=== PATIENT | female | born 1970 ===

== ENCOUNTER 2017-05-18 20:20 | Emergency (ER) | payer SELFPAY ==
[2017-05-18 20:36] VITALS: BP 115/70; PULSE 61; RESP 17; TEMP 98.2; O2SAT 99
[2017-05-18] MEDS ORDERED: Sodium Chloride 0.9% 1,000 ML IV STA (21:02)
--- NOTE | 2017-05-18 21:07 | ED PDOC ---
HPI: Abdomen Time Seen by Provider: 05/18/17 21:05 Chief Complaint (Nursing): Abdominal Pain Chief Complaint (Provider): ABDOMINAL PAIN History Per: Patient (47 Y/O FEMALE HERE WITH LOWER ABDOMINAL PAIN INTERMITTENT X 8 DAYS WITH WORSENING X 2 DAYS ASSOCIATED WITH DARK STOOLS. STATES SHE NOTED DIARRHEA INITIALLY WITH SYMPTOMS AND HAD TAKEN PEPTO BISMAL FOR SYMPTOMS. HAS HAD C SXN IN PAST. DENIES ANY FEVERS/CHILLS.) Past Medical History Reviewed: Historical Data, Nursing Documentation, Vital Signs Vital Signs: Last Vital Signs Temp 98.2 F 05/18/17 20:31 Pulse 61 05/18/17 20:31 Resp 17 05/18/17 20:31 BP 115/70 05/18/17 20:31 Pulse Ox 99 05/19/17 00:56 - Family History Family History: States: No Known Family Hx - Home Medications Home Medications: Ambulatory Orders Medication Instructions Recorded Famotidine [Pepcid] 20 mg PO BID #10 tab 05/19/17 - Allergies Allergies/Adverse Reactions: Allergies Allergy/AdvReac Type Severity Reaction Status Date / Time No Known Allergies Allergy Verified 05/18/17 20:36 Review of Systems ROS Statement: Except As Marked, All Systems Reviewed And Found Negative Gastrointestinal: Positive for: Abdominal Pain Physical Exam - Reviewed Nursing Documentation Reviewed: Yes Vital Signs Reviewed: Yes - Physical Exam Appears: Positive for: Well, Non-toxic, No Acute Distress Head Exam: Positive for: ATRAUMATIC, NORMAL INSPECTION, NORMOCEPHALIC Skin: Positive for: Normal Color, Warm, DRY Eye Exam: Positive for: EOMI, Normal appearance, PERRL ENT: Positive for: Normal ENT Inspection Neck: Positive for: Normal, Painless ROM Cardiovascular/Chest: Positive for: Regular Rate, Rhythm Respiratory: Positive for: CNT, Normal Breath Sounds Gastrointestinal/Abdominal: Positive for: Normal Exam, Bowel Sounds, Soft, Tenderness (RIGHT LOWER QUADRANT TENDERNESS NOTED.) Back: Positive for: Normal Inspection Rectal: Positive for: Other (DARK NONTARRY STOOL NOTED. NO BLOOD VISUALIZED.) Extremity: Positive for: Normal ROM Neurologic/Psych: Positive for: Alert, Oriented - Laboratory Results Result Diagrams: 05/18/17 21:38 05/18/17 21:38 - ECG O2 Sat by Pulse Oximetry: 99 - Progress ED Course And Treament: IMPRESSION: 1. Normal appendix. 2. Mild mucosal thickening in portions of the colon which may be due to its decompressed state or due to a mild colitis. Thank you for allowing us to participate in the care of your patient. Dictated and Authenticated by: Nimesh Ray MD pepcid 20 mg iv x 1 dose zofran 4 mg iv x1 dose ns 1 liter wide open Able to tolerate po in ED. Disposition - Clinical Impression Clinical Impression: Abdominal pain in female - Patient ED Disposition Is Patient to be Admitted: No - Disposition Referrals: Nimesh Andrews MD, PhD [Staff Provider] - Disposition: Routine/Home Disposition Time: 00:54 Condition: FAIR Prescriptions: Famotidine [Pepcid] 20 mg PO BID #10 tab Instructions: Diverticulitis Diet (ED), Colitis (ED) Forms: [facility] (Singaporean), [facility] ED School/Work Excuse Print Language: IRISH
[2017-05-18 22:01] LABS: ALB/GLOB RATIO 1.3 (1.0-2.1); ALKALINE PHOSPHATASE 49 U/L (38-126); ALT/SGPT 63 U/L (9-52); AST/SGOT 62 U/L (14-36); BILIRUBIN,TOTAL 0.4 mg/dl (0.2-1.3); BLOOD UREA NITROGEN 13 mg/dl (7-17); CALCIUM 9.1 mg/dL (8.4-10.2); CARBON DIOXIDE 29 mmol/L (22-30); CHLORIDE 101 mmol/L (98-107); GFR AFRICAN-AMERICAN > 60; GLUCOSE,RANDOM 94 mg/dL (65-105); LIPASE 433 U/L (23-300); POTASSIUM 3.8 MMOL/L (3.6-5.0); SODIUM 141 mmol/l (132-148); TOTAL PROTEIN 7.8 G/DL (6.3-8.2)
[2017-05-18 22:04] LABS: BASO % 0.6 % (0.0-2.0); EOS # 0.2 K/uL (0.0-0.7); EOS % 1.9 % (0.0-4.0); HEMATOCRIT 40.1 % (34.0-47.0); LYMPH # 2.1 K/uL (1.0-4.3); LYMPH % 24.9 % (20.0-40.0); MEAN CELL VOLUME 88.8 fl (81.0-99.0); MEAN CORPUSCULAR HEMOGLOBIN 29.8 pg (27.0-31.0); MEAN CORPUSCULAR HGB CONC 33.6 g/dL (33.0-37.0); MEAN PLATELET VOLUME 8.9 fl (7.2-11.7); MONO # 1.4 K/uL (0.0-0.8); MONO % 16.6 % (0.0-10.0); NEUT # 4.6 K/uL (1.8-7.0); RED CELL DISTRIBUTION WIDTH 12.5 % (11.5-14.5); WHITE BLOOD COUNT 8.2 K/uL (4.8-10.8)
[2017-05-18 22:14] LABS: PARTIAL THROMBOPLASTIN TIME 27.8 Seconds (25.6-37.1)
[2017-05-18] MEDS ORDERED: Iohexol 300 100 ML IJ ONE (23:16)
[2017-05-18] MEDS ORDERED: Sodium Chloride 0.9% 50 ML IV ONE (23:16)
--- NOTE | 2017-05-19 11:56 | CT ---
PROCEDURE: CT Abdomen and Pelvis with contrast HISTORY: R/O DIVERTICULITIS/ RLQ PAIN COMPARISON: None available TECHNIQUE: Contrast dose: 90 mL Omnipaque 300 Radiation dose: Total exam DLP = 733.41 mGy-cm. This CT exam was performed using one or more of the following dose reduction techniques: Automated exposure control, adjustment of the mA and/or kV according to patient size, and/or use of iterative reconstruction technique. FINDINGS: LOWER THORAX: No visible consolidation, pleural effusion, or pneumothorax. LIVER: Unremarkable. GALLBLADDER AND BILE DUCTS: Unremarkable. PANCREAS: Unremarkable. SPLEEN: Unremarkable. ADRENALS: Unremarkable. KIDNEYS AND URETERS: The kidneys enhance symmetrically. No hydronephrosis or obstructing calculus identified. VASCULATURE: No aortic aneurysm. BOWEL: Stomach is nondistended. Lack of oral contrast limits evaluation for bowel pathology. Bowel loops appear within normal limits of caliber without evidence of obstruction. Mucosal thickening involving portions of the colon may be exaggerated by under distension however mild colitis is not excluded (I.e. infectious, inflammatory, ischemic). APPENDIX: The appendix appears within normal limits of caliber. No secondary signs of acute appendicitis. PERITONEUM: No significant free fluid. No definite free air. LYMPH NODES: No bulky adenopathy identified. BLADDER: Unremarkable. REPRODUCTIVE: Uterus is present. BONES: No acute osseous abnormality is detected. OTHER FINDINGS: None. IMPRESSION: Mucosal thickening involving portions of the colon may be exaggerated by under distension however mild colitis is not excluded (I.e. infectious, inflammatory, ischemic). Preliminary impression was provided by virtual radiologic.
== END 2017-05-19 01:45 | disposition home or self-care (01) ==
LOC: H.ER 20:20
DX: R10.2 Pelvic and perineal pain (principal)
CPT/HCPCS: 74177; 80053; 81025; 83690; 85025; 85610; 85730; 86850; 86900; 96374; 96375; 99282; G0328; J2405; J7040; Q9967

== ENCOUNTER 2018-01-28 13:27 | Emergency (ER) | payer OTHER ==
[2018-01-28 13:34] VITALS: O2SAT 99
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
--- NOTE | 2018-01-28 16:05 | RAD ---
Date of service: 01/28/2018 PROCEDURE: Cervical Spine Radiographs. HISTORY: Posttraumatic pain COMPARISON: None. FINDINGS: BONES: Reversal of the anatomic lordosis with kyphosis. Degree: Mild. No fracture identified. DISC SPACES: Normal. SOFT TISSUES: Normal. No prevertebral soft tissue swelling. OTHER FINDINGS: None. IMPRESSION: Mild kyphosis replacing anatomic lordosis. No acute osseous abnormalities.
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
[2018-01-28 16:56] VITALS: BP 122/78; PULSE 76; RESP 18; TEMP 98
== END 2018-01-28 16:55 | disposition home or self-care (01) ==
LOC: H.ER 13:27
DX: S13.4XXA Sprain of ligaments of cervical spine, initial encounter (principal); S80.811A Abrasion, right lower leg, initial encounter; S63.502A Unspecified sprain of left wrist, initial encounter; V43.52XA Car driver injured in collision with other type car in traffic accident, initial encounter; Y92.410 Unspecified street and highway as the place of occurrence of the external cause